=== PATIENT | male | born 1950 | race Caucasian/White ===

== ENCOUNTER 2017-04-05 11:33 | Emergency (ER) | payer MEDICARE, OTHER ==
[~2017-04-05] VITALS: Ht 175.3 cm; Wt 86.2 kg
[2017-04-05] MEDS ORDERED: PRILOSEC 20 MG20 MG PO (12:07)
[2017-04-05 13:49] VITALS: BP 139/94
== END 2017-04-05 13:50 | disposition home or self-care (01) ==
LOC: M.ERS 11:33
DX: S50.02XA Contusion of left elbow, initial encounter (principal); M25.422 Effusion, left elbow; K21.9 Gastro-esophageal reflux disease without esophagitis; V83.9XXA Unspecified occupant of special industrial vehicle injured in nontraffic accident, initial encounter; Y93.89 Activity, other specified; Y92.89 Other specified places as the place of occurrence of the external cause; Y99.8 Other external cause status